=== PATIENT | female | born 1985 | race Caucasian/White ===

== ENCOUNTER 2016-11-08 20:57 | Emergency (ER) | payer OTHER ==
[2016-11-08 21:14] VITALS: BP 129/83
[2016-11-08] MEDS ORDERED: Amoxicillin/Clavulanate TAB* 875 MG PO ONE (21:26)
--- NOTE | 2016-11-08 21:27 | UC ---
Throat Pain/Nasal Abrahan HPI - HPI Summary HPI Summary: Pain and burning in left maxillary sinus and left ear pain for several days--- also has some urinary urgency for 10 days-no fevers chills or back pain - History of Current Complaint Chief Complaint: UCEye Stated Complaint: EAR PAIN Time Seen by Provider: 11/08/16 21:14 Hx Obtained From: Patient Hx Last Menstrual Period: week before jackelin ?: No Onset/Duration: Gradual Onset, Lasting Days, Still Present Severity: Moderate Cough: None Associated Signs & Symptoms: Positive: Sinus Discomfort, Nasal Discharge - Allergies/Home Medications Allergies/Adverse Reactions: Allergies Allergy/AdvReac Type Severity Reaction Status Date / Time Adhesive Tape Allergy Swelling Verified 11/08/16 21:09 gnats Allergy Intermediate Swelling Uncoded 11/08/16 21:09 [email or web address] Allergy Intermediate Swelling Uncoded 11/08/16 21:09 Home Medications: Home Medications Pseudoephedrine-Naproxen Sodiu [Aleve-D Sinus & Cold 120-220 mg] 11/08/16 [ History] PMH/Surg Hx/FS Hx/Imm Hx Previously Healthy: No Endocrine History Of: Denies: Diabetes, Thyroid Disease Cardiovascular History Of: Reports: Cardiac Disorders - EXTRA HEART BEATS, Hypertension - NO MEDS Denies: Pacemaker/ICD Respiratory History Of: Reports: Asthma - A CHILD Denies: COPD GI/ History Of: Denies: Gastroesophageal Reflux, Ulcer, Renal Disease Neurological History Of: Denies: CVA, Dementia, Seizures Psychological History Of: Reports: Anxiety, Depression Other History Of: Negative For: Anticoagulant Therapy - Surgical History Surgical History: Yes Surgery Procedure, Year, and Place: labia minor reduction. arthroscopic knee surgery. ear tubes as a child - Family History Known Family History: Positive: Unknown Family History: denies cardiovascular disease in family lineage - Social History Occupation: Employed Full-time Lives: With Family Alcohol Use: None Substance Use Type: None Smoking Status (MU): Current Every Day Smoker Type: Cigarettes Amount Used/How Often: 1 PPD Have You Smoked in the Last Year: Yes Household Exposure Type: Cigarettes Cessation Counseling: Counseled 3+Min - 10 Min - Immunization History Most Recent Influenza Vaccination: 2013 Most Recent Tetanus Shot: unknown Most Recent Pneumonia Vaccination: none Review of Systems Constitutional: Fatigue Skin: Negative Eyes: Negative ENT: Ear Ache, Nasal Discharge Respiratory: Negative Cardiovascular: Negative Gastrointestinal: Negative Genitourinary: Urgency Motor: Negative Neurovascular: Negative Musculoskeletal: Negative Neurological: Headache - maxillary sinus Psychological: Negative All Other Systems Reviewed And Are Negative: Yes Physical Exam Triage Information Reviewed: Yes Appearance: Well-Appearing, No Pain Distress, Well-Nourished Vital Signs: Initial Vital Signs Temp 98.4 F 11/08/16 21:10 Pulse 93 11/08/16 21:10 Resp 18 11/08/16 21:10 BP 129/83 11/08/16 21:10 Pulse Ox 98 11/08/16 21:10 Vital Signs Reviewed: Yes Eye Exam: Normal Eyes: Positive: Conjunctiva Clear ENT: Positive: Hearing grossly normal, Nasal congestion, Nasal drainage, TM bulging - left. Negative: Pharynx normal, Tonsillar swelling, Tonsillar exudate Dental Exam: Normal Neck exam: Normal Neck: Positive: Supple, Nontender, No Lymphadenopathy Respiratory Exam: Normal Respiratory: Positive: Chest non-tender, Lungs clear, Normal breath sounds, No respiratory distress, No accessory muscle use Cardiovascular Exam: Normal Cardiovascular: Positive: RRR, No Murmur, Pulses Normal, Brisk Capillary Refill Musculoskeletal Exam: Normal Musculoskeletal: Positive: Strength Intact, ROM Intact Neurological Exam: Normal Neurological: Positive: Alert, Muscle Tone Normal Psychological Exam: Normal Skin Exam: Normal Diagnostics - Laboratory Diagnostic Studies Completed/Ordered: u/a - wnl Throat Pain/Nasal Course/Dx - Course Course Of Treatment: flonase,augmentin, increase fluids, follow with pcp, tylenol, ibuprofen - Differential Dx/Diagnosis Differential Diagnosis/HQI/PQRI: Laryngitis, Otitis Media, Peritonsillar Abscess , Pharyngitis, URI Provider Diagnoses: left otitis media, sinusitis, nicotine dependence Discharge - Discharge Plan Condition: Stable Disposition: HOME Prescriptions: Amoxicillin/Clavulanate TAB* [Augmentin TAB 875*] 875 mg PO BID #19 tab Fluticasone NASAL SPRAY 50MCG* [Flonase NASAL SPRAY 50MCG*] 2 spray BOTH NARES DAILY #1 btl Patient Education Materials: Fluticasone (Into the nose), Sinusitis (ED), Otitis Media (ED), How to Use Nasal Robson (ED) Referrals: Sridhar Flower MD [Primary Care Provider] - If Needed
== END 2016-11-08 21:50 | disposition home or self-care (01) ==
LOC: UCEAST 20:57
DX: H66.92 Otitis media, unspecified, left ear (principal); J32.9 Chronic sinusitis, unspecified; F17.210 Nicotine dependence, cigarettes, uncomplicated
CPT/HCPCS: 81002; 99212; A9270-GY; G0463

== ENCOUNTER 2016-12-19 18:17 | Emergency (ER) | payer OTHER ==
[2016-12-19 18:50] VITALS: BP 107/71
--- NOTE | 2016-12-19 20:00 | RAD ---
INDICATION: Right pleuritic chest pain COMPARISON: November 17, 2015 TECHNIQUE: PA and lateral dual-energy views were obtained. FINDINGS: Bones/Soft Tissues: There are no acute bony findings. Cardiomediastinal: The cardiomediastinal silhouette is normal. Lungs: There are no infiltrates. There is no pneumothorax. Pleura: There are no pleural effusions. Other: None IMPRESSION: NORMAL CHEST.
--- NOTE | 2016-12-19 20:11 | UC ---
Back Pain HPI - HPI Summary HPI Summary: pain below right ribcage for 3d. Hurts to get up, twist, take a deep breath. "Feels like the rib is stabbing into me." Not skin surface tenderness. No redness or rash. No know injury. No cough. No vomiting or diarrhea. Wants to be sure it's not a kidney infection. No fever. No dysuria. Always has frequency of urination, so no change. 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 Negative: Swelling, Redness, Bruising, Bladder Incontinence, Bowel Incontinence , Weight Loss - Risk Factors AAA Risk Factors: Negative TAD Risk Factors: Negative Cauda Equina Risk Factors: Negative Epidural Abscess Risk Factors: Negative - Allergies/Home Medications Allergies/Adverse Reactions: Allergies Allergy/AdvReac Type Severity Reaction Status Date / Time Adhesive Tape Allergy Swelling Verified 12/19/16 18:38 gnats Allergy Intermediate Swelling Uncoded 12/19/16 18:38 [email or web address] Allergy Intermediate Swelling Uncoded 12/19/16 18:38 PMH/Surg Hx/FS Hx/Imm Hx Endocrine History Of: Denies: Diabetes, Thyroid Disease Cardiovascular History Of: Reports: Cardiac Disorders - EXTRA HEART BEATS, Hypertension - Past hx, BP now under control- not on meds Denies: Pacemaker/ICD Respiratory History Of: Reports: Asthma - A CHILD Denies: COPD GI/ History Of: Denies: Gastroesophageal Reflux, Ulcer, Renal Disease Neurological History Of: Denies: CVA, Dementia, Seizures Psychological History Of: Reports: Anxiety, Depression Other History Of: Negative For: Anticoagulant Therapy - Surgical History Surgical History: Yes Surgery Procedure, Year, and Place: labia minor reduction. arthroscopic knee surgery. 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 Lives: With Family Alcohol Use: None Substance Use Type: None Smoking Status (MU): Current Every Day Smoker Type: Cigarettes Amount Used/How Often: 1 PPD Have You Smoked in the Last Year: Yes Household Exposure Type: Cigarettes - Immunization History Most Recent Influenza Vaccination: 2013 Most Recent Tetanus Shot: unknown Most Recent Pneumonia Vaccination: none Review of Systems Constitutional: Negative Skin: Negative Eyes: Negative ENT: Negative Respiratory: Negative Cardiovascular: Negative Gastrointestinal: Negative Genitourinary: Negative Motor: Negative Neurovascular: Negative Musculoskeletal: Decreased ROM, Myalgia Neurological: Negative Psychological: Negative All Other Systems Reviewed And Are Negative: Yes Physical Exam Triage Information Reviewed: Yes Appearance: Well-Appearing, No Pain Distress, Well-Nourished, Obese Vital Signs: Initial Vital Signs Temp 97.7 F 12/19/16 18:39 Pulse 63 12/19/16 18:39 Resp 18 12/19/16 18:39 BP 107/71 12/19/16 18:39 Pulse Ox 97 12/19/16 18:39 Eye Exam: Normal ENT Exam: Normal Dental Exam: Normal Neck exam: Normal Neck: Positive: 1 Respiratory Exam: Normal Cardiovascular Exam: Normal Abdominal Exam: Normal Musculoskeletal Exam: Other - mild tenderness to palpation of lower costal margin right posterior Neurological Exam: Normal Psychological Exam: Normal Skin Exam: Normal Diagnostics - Laboratory Diagnostic Studies Completed/Ordered: U/A unremarkable; CXR neg Back Pain Course/Dx - Differential Dx/Diagnosis Provider Diagnoses: lumbar strain Discharge - Discharge Plan Condition: Stable Disposition: HOME Patient Education Materials: Low Back Strain (ED) Referrals: Sridhar Flower MD [Primary Care Provider] -
== END 2016-12-19 20:12 | disposition home or self-care (01) ==
LOC: UCEAST 18:17
DX: S39.012A Strain of muscle, fascia and tendon of lower back, initial encounter (principal); X58.XXXA Exposure to other specified factors, initial encounter; Y93.9 Activity, unspecified; Y92.89 Other specified places as the place of occurrence of the external cause; R35.0 Frequency of micturition; F17.210 Nicotine dependence, cigarettes, uncomplicated
CPT/HCPCS: 71020; 81002; 99211; G0463